=== PATIENT | male | born 1985 | race Two or more races ===

== ENCOUNTER → 2018-08-16 | Outpatient (CLI) | payer OTHER ==
[~2018-08-16] MED LIST: BARIUM SULFATE 176 GM BTL PO ONE; BARIUM SULFATE 340 GM POWD ONE
--- NOTE | 2018-08-16 11:55 | RADIOLOGY IMAGING REPORT ---
[place] [facility] [place]: Raymundo Santillan : 1985 MR: [id number] V: [id number] EXAM DATE: ORDERING PHYSICIAN: MICHAEL FERNANDEZ TECHNOLOGIST: Location: [facility] [place] Patient: Raymundo Santillan : 1985 Visit/Account:[id number] Date of Sevice: 08/16/2018 EXAMINATION: Upper GI HISTORY: GERD. COMPARISON: None. TECHNIQUE: Thick and thin liquid barium was given orally and multiple fluoroscopic images were obtain ed. FLUOROSCOPY TIME: 2.2 minutes. DOSE: DAP was 473.14 microGy*m2. FINDINGS: Peristalsis: Normal. Esophagus: There is a smooth Schatzki's ring at the gastroesophageal junction.. Otherwise normal in contour and caliber without irregularity. Reflux: There is a small amount of gastroesophageal reflux noted intermittently during the examinatio n, and a small amount of gastroesophageal reflux to the upper esophagus with provocative maneuvers. Barium tablet: A 13 mm Barium tablet was given which passed without problem. Stomach: There is a small sliding hiatal hernia only visualized with the patient prone. Normal in co ntour and axis. No rugal fold thickening. Duodenum: Duodenal bulb is normal. Normally positioned ligament of Treitz. IMPRESSION: 1. Schatzki's ring at the gastroesophageal junction. This can be a sign of chronic reflux. 2. Small amount of gastroesophageal reflux to the upper esophagus. 3. Small sliding hiatal hernia, only visualized with the patient prone. Report Dictated By: Cande Corley MD at 08/16/2018 11:45 AM Report E-Signed By: Cande Corley MD at 08/16/2018 11:51 AM WSN:[email or web address]
== END ==
LOC: RAD 09:27
PROVIDERS: ATTEND Family Medicine
DX: K21.9 Gastro-esophageal reflux disease without esophagitis (principal); K44.9 Diaphragmatic hernia without obstruction or gangrene
CPT/HCPCS: 74240